=== PATIENT | female | born 1980 | race Caucasian/White ===

== ENCOUNTER → 2017-10-22 | Outpatient (CLI) | payer MEDICAID ==
[~2017-10-22] MED LIST: GADOBUTROL 10 ML VIAL IVP ONE
== END ==
LOC: FIMAGING 14:54
PROVIDERS: ATTEND Psychiatry & Neurology Neurology
DX: R51 Headache (principal); R93.0 Abnormal findings on diagnostic imaging of skull and head, not elsewhere classified; Z86.69 Personal history of other diseases of the nervous system and sense organs
CPT/HCPCS: A9585